=== PATIENT | male | born 1955 | race Two or more races ===

== ENCOUNTER 2023-12-15 21:00 | Emergency (ER) | payer MEDICARE, MEDICAID ==
[~2023-12-15] VITALS: Ht 188 cm; Wt 92.0 kg
[2023-12-15 22:01] VITALS: O2SAT 98
[2023-12-15] MEDS: ACETAMINOPHEN 500MG TABLET PO ONE (22:30)
[2023-12-15 22:52] LABS: CLARITY URINE CLOUDY (CLEAR); COLOR URINE YELLOW (YELLOW); GLUCOSE URINE NEGATIVE (NEGATIVE); KETONES URINE TRACE (NEGATIVE); LEUKOCYTE ESTERASE URINE NEGATIVE (NEGATIVE); NITRITE URINE NEGATIVE (NEGATIVE); OCCULT BLOOD URINE 3+ (NEGATIVE); PROTEIN URINE 1+ (NEGATIVE); SPECIFIC GRAVITY URINE 1.015 (1.005-1.030); UROBILINOGEN URINE 0.2 E.U./dL (0.2-1.0)
[2023-12-15 23:09] LABS: WBC URINE 0-2 /hpf (0-2)
[2023-12-15 23:10] LABS: BACTERIA URINE 1+; RBC URINE 15-25 /hpf (0-2); SQUAMOUS EPITHELIAL CELL URINE 1+ /lpf (RARE/1+)
[2023-12-16 00:13] LABS: BASOPHILS % 0.6 % (0.0-2.0); EOSINOPHILS % 0.5 % (0.0-5.0); HEMATOCRIT. 45.2 % (42.0-52.0); HEMOGLOBIN. 14.7 g/dL (14.0-18.0); LYMPHOCYTES % 18.6 % (20.0-50.0); MEAN CORPUSCULAR HEMOGLOBIN 28.4 pg (28.0-32.0); MEAN CORPUSCULAR HGB CONC 32.4 g/dL (31.0-37.0); MEAN CORPUSCULAR VOLUME 87.4 fL (80.0-94.0); MEAN PLATELET VOLUME 8.6 fl (7.4-10.4); MONOCYTES % 11.4 % (2.0-8.0); NEUTROPHILS % 68.9 % (40.0-76.0); PLATELET 292 x1000/uL (130-400); RED BLOOD CELL COUNT 5.17 mill/uL (4.7-6.1); RED CELL DISTRIBUTION WIDTH 13.7 % (11.6-14.6)
[2023-12-16 00:19] LABS: CHLORIDE 103 mEq/L (98-107); POTASSIUM 3.9 mEq/L (3.5-5.1); SODIUM 135 mEq/L (136-145)
[2023-12-16 00:20] LABS: CARBON DIOXIDE 25 mEq/L (21-32)
[2023-12-16 00:21] LABS: CALCIUM 8.8 mg/dL (8.7-10.4)
[2023-12-16 00:25] LABS: GLUCOSE 103 mg/dL (70-105); PARTIAL THROMBOPLASTIN TIME 28.3 sec (23.4-31.0); PROTHROMBIN TIME 11.2 sec (9.6-11.0); UREA NITROGEN BLOOD 13 mg/dL (9-23)
[2023-12-16] MEDS: IOHEXOL-300 100 ML BOTTLE ONE (02:50)
[2023-12-16 11:00] VITALS: TEMP 98.2
[2023-12-16] MEDS ORDERED: ONDANSETRON HCL 4MG/2ML INJ IV PRN (13:30)
[2023-12-16] MEDS ORDERED: ACETAMINOPHEN 325MG TABLET PO PRN (13:30)
[2023-12-16] MEDS ORDERED: TAMS-11 MT (14:30)
[2023-12-16 16:00] VITALS: BP 134/83; PULSE 78; RESP 16
== END 2023-12-16 16:13 | disposition home or self-care (01) ==
LOC: ER 21:00 → UNDOADMIN 12-16 02:16 → 5WST 12-16 02:16 → EDBEDREQ 12-16 02:18
DX: R10.12 Left upper quadrant pain (principal); R10.32 Left lower quadrant pain; I25.2 Old myocardial infarction; Z98.890 Other specified postprocedural states
CPT/HCPCS: 80048; 81003; 85025; 85610; 85730; 86850; 86900; 86901; 36415; 99285; 74177; Q9967; Z7610 ×3

== ENCOUNTER 2025-01-16 12:59 | Emergency (ER) | payer MEDICARE, MEDICAID ==
[~2025-01-16] VITALS: Ht 188 cm; Wt 90.0 kg
[~2025-01-16 12:59] MED LIST: TAMS-54 MT
[2025-01-16 13:12] VITALS: O2SAT 98
[2025-01-16] MEDS: ACETAMINOPHEN 1000MG/100ML 100 ML IV ONE (15:06)
[2025-01-16 15:25] LABS: BASOPHILS % 0.9 % (0.0-2.0); EOSINOPHILS % 0.5 % (0.0-5.0); HEMATOCRIT. 45.6 % (42.0-52.0); HEMOGLOBIN. 15.1 g/dL (14.0-18.0); LYMPHOCYTES % 21.8 % (20.0-50.0); MEAN PLATELET VOLUME 8.8 fl (7.4-10.4); MONOCYTES % 12.3 % (2.0-8.0); NEUTROPHILS % 64.5 % (40.0-76.0); PLATELET 300 x1000/uL (130-400); RED BLOOD CELL COUNT 5.30 mill/uL (4.7-6.1); RED CELL DISTRIBUTION WIDTH 13.6 % (11.6-14.6)
[2025-01-16 15:34] LABS: CREATININE 0.9 mg/dL (0.6-1.3); UREA NITROGEN BLOOD 17 mg/dL (9-23)
[2025-01-16 15:35] LABS: INR 1.1
[2025-01-16 15:36] LABS: ASPARTATE AMINOTRANSFERASE 21 IU/L (<34); BILIRUBIN DIRECT 0.2 mg/dL (<=3.0); BILIRUBIN TOTAL 0.6 mg/dL (0.1-1.0); PROTEIN TOTAL 7.1 g/dL (6.0-8.3); TROPONIN I HIGH SENSITIVITY 5 ng/L (3.0-53)
[2025-01-16 16:42] VITALS: BP 159/90; PULSE 64; RESP 18; TEMP 36.7; O2SAT 100
[2025-01-16] MEDS: IOHEXOL-350 100 ML BOTTLE ONE (16:42)
== END 2025-01-16 17:16 | disposition home or self-care (01) ==
LOC: ER 12:59 → CMPBEDREQ 01-18 08:30
DX: R07.9 Chest pain, unspecified (principal); M54.9 Dorsalgia, unspecified; R06.02 Shortness of breath; Z79.899 Other long term (current) drug therapy; Z98.890 Other specified postprocedural states
CPT/HCPCS: 99285; 71275; 71045; 80076; 80048; 83880; 85025; 85610; 84484; 36415; 93005; Q9967; J0131